=== PATIENT | male | born 1990 | race Two or more races ===

== ENCOUNTER 2021-02-21 13:13 | Emergency (ER) | payer BC ==
[~2021-02-21] VITALS: Ht 172.7 cm; Wt 117.9 kg
[2021-02-21 13:15] VITALS: BP 110/69
[2021-02-21] MEDS ORDERED: LIDOCAINE 1% HCL (LOCAL ANESTH.) INJ 20ML MDV IJ ONE (16:30)
== END 2021-02-21 17:31 | disposition home or self-care (01) ==
LOC: ER 13:15
DX: S61.212A Laceration without foreign body of right middle finger without damage to nail, initial encounter (principal); W22.8XXA Striking against or struck by other objects, initial encounter; Y93.89 Activity, other specified; Y92.89 Other specified places as the place of occurrence of the external cause; Y99.8 Other external cause status
CPT/HCPCS: 12001; 12031; 73140

== ENCOUNTER 2021-02-24 02:09 | Emergency (ER) | payer BC ==
[~2021-02-24] VITALS: Ht 172.7 cm; Wt 117.9 kg
[2021-02-24 02:11] VITALS: BP 113/76
[2021-02-24] MEDS ORDERED: cefTRIAXone SOD 1,000 MG VL IM ONE (04:30)
[2021-02-24] MEDS ORDERED: KETOROLAC TROMETH 60MG/2ML VIAL IM ONE (04:30)
[2021-02-24] MEDS ORDERED: LIDOCAINE 1% HCL (LOCAL ANESTH.) INJ 20ML MDV IJ ONE (04:45)
== END 2021-02-24 04:58 | disposition home or self-care (01) ==
LOC: ER 02:12
DX: S69.91XA Unspecified injury of right wrist, hand and finger(s), initial encounter (principal); Z90.49 Acquired absence of other specified parts of digestive tract; W22.8XXA Striking against or struck by other objects, initial encounter; Y93.89 Activity, other specified; Y92.89 Other specified places as the place of occurrence of the external cause; Y99.8 Other external cause status
CPT/HCPCS: 96372; 99284; J0696; J1885; J2001

== ENCOUNTER 2022-06-11 18:56 | Emergency (ER) | payer BC ==
[~2022-06-11] VITALS: Ht 172.7 cm; Wt 116.0 kg
[2022-06-11 21:47] VITALS: BP 126/61
[2022-06-11] MEDS ORDERED: SULF400T11 PO (23:20)
[2022-06-11] MEDS ORDERED: IBUP800T26 PO (23:20)
== END 2022-06-11 23:40 | disposition home or self-care (01) ==
LOC: ER 18:56
DX: S91.111A Laceration without foreign body of right great toe without damage to nail, initial encounter (principal); Z90.49 Acquired absence of other specified parts of digestive tract; X58.XXXA Exposure to other specified factors, initial encounter; Y93.89 Activity, other specified; Y92.89 Other specified places as the place of occurrence of the external cause; Y99.8 Other external cause status
CPT/HCPCS: 12001; 73660; 99283; L3260

== ENCOUNTER 2024-02-09 22:45 | Emergency (ER) | payer BC, OTHER ==
[~2024-02-09] VITALS: Ht 172.7 cm; Wt 119.5 kg
[~2024-02-09 22:45] MED LIST: IBUP-1455 PO; SULF400T11 PO
[2024-02-10 03:19] VITALS: BP 124/70; PULSE 53; RESP 18; TEMP 97.9; O2SAT 97
== END 2024-02-10 03:22 | disposition home or self-care (01) ==
LOC: ER 22:45
DX: M79.605 Pain in left leg (principal); Z98.890 Other specified postprocedural states; Z79.899 Other long term (current) drug therapy
CPT/HCPCS: 93971